=== PATIENT | female | born 1960 | race Hispanic/Latino ===

== ENCOUNTER 2016-06-20 23:32 | Emergency (ER) | payer BC ==
[2016-06-21 00:28] LABS: Basophils % (Auto) 0.8 % (0.0-1.8); Eosinophils % (Auto) 1.3 % (0.0-4.3); Hematocrit 40.4 % (30.3-42.9); Hemoglobin 12.7 gm/dl (10.1-14.3); Mean Corpuscular HGB Conc 32 % (30-34); Mean Corpuscular Volume 81 fl (79-97); Platelet Count 262 K/mm3 (140-440); Red Cell Distribution Width 19.3 % (13.2-15.2); White Blood Count 10.5 K/mm3 (4.5-11.0)
[2016-06-21 00:32] LABS: Mean Corpuscular Hemoglobin 26 pg (28-32)
[2016-06-21 00:47] LABS: Urine Drugs of Abuse Note Disclamer
[2016-06-21 00:49] LABS: Anion Gap 19 mmol/L; Blood Urea Nitrogen 18 mg/dL (7-17); Carbon Dioxide 22 mmol/L (22-30); Chloride 106.5 mmol/L (98-107); Glucose 90 mg/dL (65-100); Potassium 3.7 mmol/L (3.6-5.0); Sodium 144 mmol/L (137-145)
[2016-06-21 01:06] LABS: Bilirubin,Urine NEG (Negative); Blood,Urine NEG (Negative); Ketones,Urine NEG (Negative); Leukocyte Esterase,Urine NEG (Negative); Mucus,Urine FEW /HPF; Nitrite,Urine NEG (Negative); Protein,Urine <15 mg/dL mg/dL (Negative); Urobilinogen,Urine < 2.0 mg/dL (<2.0)
[2016-06-21] MEDS ORDERED: TYLENOL PO ONE (01:25)
[2016-06-21] MEDS ORDERED: NEURONTIN PO ONE (01:25)
[2016-06-21] MEDS ORDERED: PROAIR IH PRN (02:30)
[2016-06-21] MEDS ORDERED: TYLENOL PO PRN (02:31)
[2016-06-21] MEDS ORDERED: ALUM-MAG HYDROX-SIMETH 200-200-20MG/5ML PO PRN (02:31)
[2016-06-21] MEDS ORDERED: MILK OF MAGNESIA PO PRN (02:31)
--- NOTE | 2016-06-21 02:34 | Emergency Department Report ---
HPI - General Chief Complaint: Psych Time Seen by Provider: 06/21/16 00:48 - HPI HPI: The patient is a 56-year-old female who presents for evaluation of mental health. The patient reports 2-3 weeks of worsening sadness, associated with constant severe suicidal ideation for the past 2 days, exacerbated with arguing with her daughter. The patient denies fever, headache, unexplained weight loss or weight gain, heat or cold intolerance, skin, hair, or nail changes, neuro deficits, homicidal ideations, or auditory or visual hallucinations. ED Past Medical Hx - Past Medical History Previous Medical History?: Yes Hx Heart Attack/AMI: Yes Hx Psychiatric Treatment: Yes (ANXIETY) Additional medical history: PACEMAKER, MIGRAINES, CABG, AORTIC VALVE REPLACEMENT , Nuropathy - Surgical History Hx Appendectomy: Yes Additional Surgical History: AORTIC VALVE,CABG, HYSTERECTOMY, CSECTION X2 - Social History Smoking Status: Current Every Day Smoker Substance Use Type: None - Medications Home Medications: Home Medications Medication Instructions Recorded Confirmed Last Taken Type ALPRAZolam [Xanax TAB] 1 mg PO TID PRN 12/02/15 06/21/16 11/30/15 History Aspirin 81 mg PO QDAY 12/02/15 06/21/16 11/30/15 History Gabapentin [Neurontin] 400 mg PO Q8H 12/02/15 06/21/16 11/30/15 History Pantoprazole [Protonix TAB] 40 mg PO QDAY 12/02/15 06/21/16 11/30/15 History ALBUTEROL Inhaler [Proair] 2 puff IH BID PRN 06/21/16 06/21/16 Unknown History Buprenorphine HCl/Naloxone HCl 1 film SL TID 06/21/16 06/21/16 Unknown History [Suboxone 4 mg-1 mg SL Film] Paroxetine HCl [Paxil] 30 mg PO DAILY 06/21/16 06/21/16 Unknown History ED Review of Systems ROS: Stated complaint: PACE MAKER CLEARANCE Other details as noted in HPI Constitutional: denies: fever ENT: denies: throat or neck pain Respiratory: denies: cough, shortness of breath Cardiovascular: denies: chest pain Endocrine: denies unexplained weight loss or gain Gastrointestinal: denies: abdominal pain, nausea Genitourinary: denies: dysuria Musculoskeletal: denies: leg swelling Skin: denies: rash Neurological: denies: headache Hematological/Lymphatic: denies: easy bleeding or easy bruising Psych: reports sadness & hopelessness Physical Exam - Physical Exam Vital Signs: Vital Signs 06/21/16 00:00 Temperature 97.8 F Pulse Rate 72 Respiratory 18 Rate Blood Pressure 145/61 Blood Pressure 145/61 [Left] O2 Sat by Pulse 98 Oximetry Physical Exam: General: well-nourished, well-developed, no acute distress Head: Normocephalic, atraumatic Eyes: normal sclera ENT: Mucous membranes are pink and moist Neck: trachea midline, neck supple, No neck stiffness, no cervical adenopathy Respiratory: Breath sounds equal bilaterally, no wheezing, rales, or rhonchi Cardio: S1 and S2 present, no murmurs, rubs, gallops, capillary refill is brisk Abdomen: Normoactive bowel sounds, soft abdomen, no rigidity, no guarding or rebound tenderness Chest WALL/Back: No tenderness to palpation of the chest wall, no CVA tenderness with percussion Musc: No pitting edema Skin: No rash Neuro: no facial drooping, normal speech Psych: Flat affect, depressed mood, positive suicidal ideation ED Course Vital Signs 06/21/16 00:00 Temperature 97.8 F Pulse Rate 72 Respiratory 18 Rate Blood Pressure 145/61 Blood Pressure 145/61 [Left] O2 Sat by Pulse 98 Oximetry ED Medical Decision Making - Lab Data Result diagrams: 06/21/16 00:17 06/21/16 00:17 - Medical Decision Making The patient was seen and examined by myself. The patient is placed on a cardiac rn and continuous pulse ox. On initial evaluation, the patient was found to be in no distress. Labs are obtained. Lab results are grossly unremarkable. The patient is medically clear. Mental health is consulted. Mental health evaluates the patient and agrees that the patient is at risk of harm to self. A 1013 is completed. The patient will be admitted to a psychiatric facility once bed placement is obtained. Critical care attestation.: If time is entered above; I have spent that time in minutes in the direct care of this critically ill patient, excluding procedure time. ED Disposition Clinical Impression: Suicidal ideation Disposition: DC/TX PSY HOSP/PSY UNIT Is pt being admited?: No Does the pt Need Aspirin: No Condition: Stable Referrals: PRIMARY CARE, [Primary Care Provider] - 3-5 Days Time of Disposition: 02:13
[2016-06-21] MEDS: NEURONTIN PO SCH ×3 (03:18→19:05)
[2016-06-21 03:35] LABS: INR 0.98 (0.87-1.13)
--- NOTE | 2016-06-21 08:08 | Consultation ---
History of Present Illness - Reason for Consult Consult date: 06/21/16 Reason for consult: suicidal thoughts with a plan - History of Present Psychiatric Illness This is a 56 year old domiciled disabled female with PMH of migraines, aortic valve replacement with a pacemaker, and neuropathy who also has a PPH of Bipolar disorder who presents 2/2 SI with a plan to cut her throat. She recently lost her insurance and was unable to obtain her medication. Last dose of her psychotropic and pain medications was at the end of April or beginning of May. Now she is endorsing sleep difficulties, depressed mood with SI, emergence of AH, and withdrawal from suboxone namely in the form of her exacerbated pain. She is unable to recount the last date of her suboxone use to me today. Medications and Allergies Allergies Allergy/AdvReac Type Severity Reaction Status Date / Time codeine Allergy Itching Verified 12/01/15 15:11 Home Medications Medication Instructions Recorded Confirmed Last Taken Type ALPRAZolam [Xanax TAB] 1 mg PO TID PRN 12/02/15 06/21/16 11/30/15 History Aspirin 81 mg PO QDAY 12/02/15 06/21/16 11/30/15 History Gabapentin [Neurontin] 400 mg PO Q8H 12/02/15 06/21/16 11/30/15 History Pantoprazole [Protonix TAB] 40 mg PO QDAY 12/02/15 06/21/16 11/30/15 History ALBUTEROL Inhaler [Proair] 2 puff IH BID PRN 06/21/16 06/21/16 Unknown History Buprenorphine HCl/Naloxone HCl 1 film SL TID 06/21/16 06/21/16 Unknown History [Suboxone 4 mg-1 mg SL Film] Paroxetine HCl [Paxil] 30 mg PO DAILY 06/21/16 06/21/16 Unknown History Active Meds: Active Medications Acetaminophen (Tylenol) 650 mg PO Q4HR PRN PRN Reason: Pain MILD(1-3)/Fever >100.5/LLOYD Al Hydrox/Mg Hydrox/Simethicone (Alum-Mag Hydrox-Simeth [phone]/5ml) 30 ml PO Q4HR PRN PRN Reason: Indigestion Albuterol (Proair) 2 puff IH BID PRN PRN Reason: Shortness Of Breath Aspirin (Baby Aspirin) 81 mg PO QDAY MILO Gabapentin (Neurontin) 400 mg PO Q8H MILO Last Admin: 06/21/16 03:18 Dose: Not Given Magnesium Hydroxide (Milk Of Magnesia) 30 ml PO Q12HR PRN PRN Reason: Constipation Mental Status Exam - Vital signs Last Vital Signs Temp 98.1 F 06/21/16 07:38 Pulse 75 06/21/16 07:38 Resp 18 06/21/16 07:38 BP 128/66 06/21/16 07:38 Pulse Ox 97 06/21/16 07:38 - Exam Orientation: time, place Affect: anxious Mood: hopeless, sad Thought Process: Intact Perceptions: hallucinations Speech: normal rate and pattern Concentration: distractible Motor activity: lethargic, restless Level of consciousness: alert Memory: Intact Sleep Symptoms: Insomnia Interaction: cooperative Results Result Diagrams: 06/21/16 00:17 06/21/16 00:17 Abnormal lab results 06/21/16 06/21/16 06/21/16 Range/Units 00: 00:17 00:35 MCH 26 L (28-32) pg RDW 19.3 H (13.2-15.2) % [place] % (Auto) 8.6 H (0.0-7.3) % [place] # 0.9 H (0.0-0.8) K/mm3 BUN 18 H (7-17) mg/dL Creatinine 0.6 L (0.7-1.2) mg/dL Ur Specific [place] 1.036 H (1.003-1.030) Salicylates (2.8-20.0) mg/dL 06/21/16 Range/Units 01:15 MCH (28-32) pg RDW (13.2-15.2) % [place] % (Auto) (0.0-7.3) % [place] # (0.0-0.8) K/mm3 BUN (7-17) mg/dL Creatinine (0.7-1.2) mg/dL Ur Specific [place] (1.003-1.030) Salicylates 20.5 H (2.8-20.0) mg/dL All other labs normal. Assessment and Plan Assessment and plan: Impression: Bipolar Disorder, MRE Depressed Neuropathy Opiate Dependence likely 2/2 treatment of her chronic pain currently on substitution with Suboxone Plan: Restart Gabapentin 300 mg po tid, Haloperidol 5 mg po qhs, paxil 20 mg daily Suboxone therapy can not be reinitiate by this author as I do not have a license to prescribe suboxone Acute opiate withdrawal can be managed symptomatically by using antihypertensives, oral pain medications for myalgias, anti-emetics and medications that reduce gut motility. Transfer to an inpatient psychiatric unit
[2016-06-21] MEDS ORDERED: BABY ASPIRIN PO SCH (10:00)
[2016-06-21 19:39] VITALS: BP 114/68
[2016-06-21] MEDS ORDERED: HALDOL PO SCH (22:00)
== END 2016-06-21 20:51 ==
LOC: EEVIPCON 23:32 → ED 23:32
DX: R45.851 Suicidal ideations (principal); I25.2 Old myocardial infarction; F41.9 Anxiety disorder, unspecified; G43.909 Migraine, unspecified, not intractable, without status migrainosus; F17.200 Nicotine dependence, unspecified, uncomplicated; Z79.82 Long term (current) use of aspirin; Z95.0 Presence of cardiac pacemaker
CPT/HCPCS: 36415; 80048; 80307; 81001; 85025; 85610; 93005; 93010; 99285; G0480; 80320